=== PATIENT | female | born 2000 ===

== ENCOUNTER → 2022-03-07 16:50 | Outpatient (CLI) | payer OTHER, MEDICAID, SELFPAY | PROVIDERS: Visit Provider Obstetrics & Gynecology | DX: Z34.00 Encounter for supervision of normal first pregnancy, unspecified trimester (principal) | CPT/HCPCS: 87086 ==

== ENCOUNTER → 2022-03-08 10:36 | Outpatient (CLI) | payer OTHER, MEDICAID, SELFPAY ==
[2022-03-08 11:54] LABS: Add Manual Diff / Slide Review NO; Basophils Absolute Auto 100 /uL (0-100); Basophils Percent Auto 0.7 % (0-2); Eosinophils Absolute Auto 0 /uL (0-450); Eosinophils Percent Auto 0.6 % (2-4); Hematocrit 33.1 % (36-46); Hemoglobin 11.6 g/dL (12.0-16.0); Lymphocytes Absolute Auto 1500 /uL (1100-4500); Lymphocytes Percent Auto 17.6 % (25-40); Mean Corpuscular Hemoglobin 32.3 PG (26-34); Mean Corpuscular Volume 92.1 fL (80-100); Monocytes Absolute Auto 600 /uL (0-900); Neutrophils Absolute Auto 6300 /uL (1500-7000); Neutrophils Percent Auto 74.1 % (50-75); Platelet Count 224 X10^3/uL (150-400); White Blood Cell Count 8.4 X10^3/uL (4.5-11.0)
[2022-03-08 14:41] LABS: UR Morphine/Opiate cutoff 300 Negative (Negative); Ur Creatinine Normal (Normal); Ur Specific Gravity Normal (Normal); Urine Amphetamines Negative (Negative); Urine Barbiturates Negative (Negative); Urine Benzodiazepines Negative (Negative); Urine Cocaine Negative (Negative); Urine MDMA Negative (Negative); Urine Methadone Negative (Negative); Urine Methamphetamines Negative (Negative); Urine Oxycodone Negative (Negative); Urine Phencyclidine Negative (Negative); Urine Tetrahydrocannabinol Negative (Negative); Urine Tricyclic Antidepressant Negative (Negative); Urine pH Normal (Normal)
[2022-03-08 16:06] LABS: Urine N gonorrhoeae NOT DETECTED
[2022-03-08 16:33] LABS: Urine Chlamydia NOT DETECTED
[2022-03-09 06:14] LABS: RPR Screen Non Reactive (Non Reactive)
[2022-03-09 08:05] LABS: Varicella IgG Antibody <135 index (Immune >165)
[2022-03-09 22:51] LABS: HIV 1 & 2 Ab/Ag 4th Gen Combo NEGATIVE (NEGATIVE); Hep C Virus Ab w/Reflex Quant NEGATIVE s/c (NEGATIVE); Hepatitis B Surface Antigen NEGATIVE s/c (NEGATIVE)
[2022-03-11 11:42] LABS: AFP, Serum 75.7 ng/mL (.); Inhibin A, Dimeric 159.78 pg/mL (.); Inhibin A, MoM 0.85 (.); Maternal Ethnicity Other (.); Maternal Weight 115 lbs (.); Number of Fetuses No (.); OSBR Risk 1 IN 5411 (.); Results Report (.); Test Results *Screen Negative* (.); hCG, MoM 1.27 (.); hCG, Serum 42715 mIU/mL (.)
== END ==
PROVIDERS: Referring Provider Obstetrics & Gynecology; Visit Provider Obstetrics & Gynecology
DX: O09.30 Supervision of pregnancy with insufficient antenatal care, unspecified trimester (principal); Z3A.18 18 weeks gestation of pregnancy
CPT/HCPCS: 36415; 80055; 80305; 82105; 82677; 84702; 86336; 86787; 86803; 86850; 86900; 86901; 87389; 87491; 87591

== ENCOUNTER → 2022-05-02 13:00 | Outpatient (CLI) | payer OTHER, MEDICAID, SELFPAY ==
--- NOTE | 2022-05-02 13:03 | DI.US.S_ITS ---
PROCEDURE: US OB LIMITED INDICATIONS: SGA OUTSIDE/PRIOR DATING DATA: Last menstrual period (LMP): October 28, 2021 LMP-based estimated date of delivery (ANTELMO): August 04, 2022 First dating scan (date and location): February 10, 2022 at [facility] Estimated date of delivery (ANTELMO) from first dating scan: August 03, 2022 The calculations are made using the clinical ANTELMO of August 04, 2022 TECHNIQUE: Real-time scanning was performed of the fetus, with image documentation and biometric measurements. Biophysical profile was also obtained. Endovaginal scanning: Perform COMPARISON: None available. FINDINGS: General: A single living intrauterine gestation is present. Presentation: Vertex Placenta: Placental position is anterior, without previa. Amniotic fluid index: 18.2 cm, normal range is 5-24 cm. Single deepest vertical pocket is 6.0 cm. heart rate: 144 beats per minute. Maternal cervical canal: Not evaluated biometrics: Biparietal diameter: 26 weeks 3 days Head circumference: 27 weeks 0 days Abdominal circumference: 25 weeks 1 day Femur length: 26 weeks 2 days Clinically estimated gestational age: 26 weeks 4 days Composite gestational age from present scan: 26 weeks 2 days Estimated weight and percentile: 854 grams; 14th percentile Biophysical profile: Tone: 8 points. Movement: 8 points. Respiration: 8 points. Largest pocket of fluid: 8 points. IMPRESSION: 1. Single living intrauterine with ultrasound estimated gestational age of 26 weeks 2 days in the current study and expected age of 26 weeks 4 days based on initial data. 2. Estimated weight 854 grams corresponding to the 14th percentile for gestational age. 3. Normal amniotic fluid index of 18.2 centimeters. 4. Biophysical profile score 8/8. Dictated by: Meggan Bal MD, PhD on 05/02/2022 at 17:10 Approved by: Meggan Bal MD, PhD on 05/02/2022 at 17:15
[2022-05-02 16:17] LABS: Hematocrit 32.9 % (36-46); Hemoglobin 11.3 g/dL (12.0-16.0)
[2022-05-02 17:22] LABS: GTT (PREG) 1 Hour PP 50gm Dose 108 mg/dL (76-139)
[2022-05-03 04:41] LABS: Toxoplasma gohndii IgG <3.0 IU/mL (0.0-7.1); Toxoplasma gondii IgM <3.0 AU/mL (0.0-7.9)
== END ==
PROVIDERS: Referring Provider Obstetrics & Gynecology; Visit Provider Obstetrics & Gynecology
DX: O26.842 Uterine size-date discrepancy, second trimester (principal); O36.5920 Maternal care for other known or suspected poor fetal growth, second trimester, not applicable or unspecified; Z3A.26 26 weeks gestation of pregnancy
CPT/HCPCS: 36415; 76815; 82950; 85014; 85018; 86645; 86777; 86778

== ENCOUNTER 2022-05-02 15:13 | Outpatient (CLI) | payer OTHER, MEDICAID, SELFPAY ==
--- NOTE | 2022-05-03 06:43 | P.TNLD_ITS ---
Visit Information Visit Information Date of evaluation: 05/02/22 Primary OB Provider: Wei Cobb Reason for Evaluation: Yes non-stress test and Yes other Comments/Additional reasons for admission: ANTELMO by LMP 08/04/2022 confirmed by US 02/10 c/w 15+1 EGA = ANTELMO 08/03/2022. Patient noted to have EFW 7th %'tile (316 g) on anatomy scan 03/22 and re-scan 04/29/2022 showed EFW then 4.8th %'tile, AC 3rd %'tile, NL FRANCIS, and borderline Doppler st udies w/ S/D ratios 3.9 (Umbilicus), 5.3 (Mid-cord), 3.5 (Placental insertion). Patient presents for NST, repeat EFW, BPP, and Doppler studies. CMV and Toxo studies today are negative. Vital Signs Vital Signs: 109/66, P=96, 36.3C PFSH Medical History Anxiety UTI (urinary tract infection) Surgical History No history of previous surgery Family History Father Sarcoidosis Sister Tourette disorder Social History marital status: unmarried,living together number of children: 0 household members: significant other and other (Boyfriends grandfather) lives independently: Yes housing: house pets and animals: Yes (Dog, Cat - aware of toxoplasmosis) education level: high school occupational status: unemployed current occupational exposures/hazards: No special robert needs: No seatbelt use: sometimes water heater temp set < 120 deg: Yes (will check) working smoke detector in home: Yes fire extinguisher in home: Yes carbon monox detector in home: Yes firearms in home: No do you feel safe at home: Yes Smoking Status: Former smoker second hand exposure: Yes (little) alcohol intake: former (only on bd) substance use type: does not use during the past year weight has: remained stable well-balanced diet: about half the time daily servings fruits/ve-1 caffeine: Yes (limit 200mg a day) Exam Const General: cooperative Nutritional Appearance: thin Orientation: alert HENNE Head: normal to inspection, normocephalic and atraumatic Eyes General: appearance normal, both eyes and all related structures Neck Neck: normal visual inspection Resp Effort & Inspection: normal respiratory effort and able to speak in complete sentences Cardio Rate: regular rate Rhythm: regular rhythm Heart Sounds: S1 normal, S2 normal and no murmurs GI Inspection: normal to inspection Palpation: soft and no hepatosplenomegaly Uterus Location (Fundal Height): 24 Extrem Right lower extremity: normal to inspection Objective Imaging OB U/S, BPP: Radiologist's impression: FINDINGS:? ? General:? A single living intrauterine gestation is present.? Presentation:? Vertex Placenta:? Placental position is anterior, without previa.? ? Amniotic fluid index:? 18.2 cm, normal range is 5-24 cm.? Single deepest vertical pocket is 6.0 cm. heart rate:? 144 beats per minute.? Maternal cervical canal:? Not evaluated ? biometrics:? Biparietal diameter:? 26 weeks 3 days Head circumference:? 27 weeks 0 days Abdominal circumference:? 25 weeks 1 day Femur length:? 26 weeks 2 days Clinically estimated gestational age:? 26 weeks 4 days Composite gestational age from present scan:? 26 weeks 2 days Estimated weight and percentile:? 854 grams; 14th percentile? ? Biophysical profile:? Tone:? 8 points. Movement:? 8 points.? Respiration:? 8 points.? Largest pocket of fluid:? 8 points.?? ? IMPRESSION:? ? 1. Single living intrauterine with ultrasound estimated gestational age of 26 weeks 2 days in the current study and expected age of 26 weeks 4 days based on initial data.? ? 2. Estimated weight 854 grams corresponding to the 14th percentile for gestational age. ? 3. Normal amniotic fluid index of 18.2 centimeters.? ? 4. Biophysical profile score 8/8.? Diagnosis, Plan/Disposition Final Diagnosis (1) Size of fetus inconsistent with dates in second trimester: Status: Acute (2) : Status: Acute Plan/Disposition Plan: Unfortunately Doppler studies not repeated as ordered but all other aspects of the assessment are reassuring. EFW suggests SGA (probably constitutional; patient is petite and has gained little weight in her thus far). Increased caloric intake recommended; she and FOB are not resource-poor but rather she has been saving $ by consuming less food. Patient will return for NST and Doppler studies 05/05/2022 OB Disposition: home
== END 2022-05-02 17:15 | disposition home or self-care (01) ==
LOC: OB 05-03 13:16
PROVIDERS: Referring Provider Obstetrics & Gynecology; Visit Provider Obstetrics & Gynecology
DX: O26.843 Uterine size-date discrepancy, third trimester (principal); Z3A.26 26 weeks gestation of pregnancy; O36.5920 Maternal care for other known or suspected poor fetal growth, second trimester, not applicable or unspecified
CPT/HCPCS: 36415; 59025; 59050; 76815; 76817; 76819; 82950; 85014; 85018; 86645; 86777; 86778; G0378; G0379

== ENCOUNTER 2022-05-05 07:57 | Outpatient (CLI) | payer OTHER, MEDICAID, SELFPAY ==
--- NOTE | 2022-05-05 | DI.US.S_ITS ---
PROCEDURE: US OB BIOPHYSICAL PROFILE INDICATIONS: IUGR OUTSIDE/PRIOR DATING DATA: First dating scan (date and location): 01/09/2022 [facility]. TECHNIQUE: Real-time scanning was performed of the fetus, with image documentation. Biophysical profile was also obtained. COMPARISON: OB ultrasound 05/02/2022. FINDINGS: General: A single living intrauterine gestation is present. Presentation: Vertex. Placenta: Placental position is anterior, without previa. Amniotic fluid index: 15.2 cm, normal range is 5-24 cm. Single deepest vertical pocket is 4.4 cm. heart rate: 157 beats per minute. Maternal cervical canal: Not well seen. Composite gestational age from initial ultrasound: 27 weeks 0 days Biophysical profile: Tone: 2 points. Movement: 2 points. Respiration: 2 points. Largest pocket of fluid: 2 points. Umbilical artery Doppler: 5.0, 3.88, 3.33. Preserved diastolic flow. IMPRESSION: 1. Denson living intrauterine at 27 weeks 0 days based on prior dating. 2. Normal placenta and amniotic fluid. 3. Normal biophysical profile. Score 8/8. 4. The umbilical artery systolic to diastolic ratio at the cord insertion is 5.0. This is mildly elevated. Umbilical artery ratio elsewhere is within normal limits. The umbilical artery waveform is within normal limits. Consider short-term follow-up umbilical artery Doppler. Preliminary results were conveyed to Dr. Cobb by the tube filler. We strive to produce accurate, complete, and clear reports of imaging services. To assist us in improving patient care, this report was composed using standard report templates and voice recognition software. Therefore, it may contain abnormal punctuation, insertions and/or omissions. Occasional wrong-word or sound-alike substitutions may occur. Though we review the report and make efforts to correct it, we do recommend that the report be read carefully in proper context to recognize any text inaccuracies. Dictated by: Huseyin Moreland M.D. on 05/05/2022 at 9:55 Approved by: Huseyin Moreland M.D. on 05/05/2022 at 10:03
--- NOTE | 2022-05-05 08:12 | PM.OBTRLD ---
Visit Information Visit Information Date of evaluation: 05/05/22 Primary OB Provider: Wei Cobb Reason for Evaluation: Yes non-stress test Comments/Additional reasons for admission: Previous US at [facility] EFW 4.8th %'tile, borderline/mildly elevated dopplers [facility] Medical History Anxiety UTI (urinary tract infection) Surgical History No history of previous surgery Family History Father Sarcoidosis Sister Tourette disorder Social History marital status: unmarried,living together number of children: 0 household members: significant other and other (Boyfriends grandfather) lives independently: Yes housing: house pets and animals: Yes (Dog, Cat - aware of toxoplasmosis) education level: high school occupational status: unemployed current occupational exposures/hazards: No special robert needs: No seatbelt use: sometimes water heater temp set < 120 deg: Yes (will check) working smoke detector in home: Yes fire extinguisher in home: Yes carbon monox detector in home: Yes firearms in home: No do you feel safe at home: Yes Smoking Status: Former smoker second hand exposure: Yes (little) alcohol intake: former (only on ) substance use type: does not use during the past year weight has: remained stable well-balanced diet: about half the time daily servings fruits/ve-1 caffeine: Yes (limit 200mg a day) Objective Imaging OB US: Radiologist's impression: PROCEDURE:? US OB BIOPHYSICAL PROFILE ? INDICATIONS:? IUGR ? OUTSIDE/PRIOR DATING DATA:? First dating scan (date and location):? 01/09/2022 [facility].? ? TECHNIQUE:? Real-time scanning was performed of the fetus, with image documentation.? Biophysical profile was also obtained.? ? COMPARISON:? OB ultrasound 05/02/2022. ? FINDINGS:? ? General:? A single living intrauterine gestation is present.? Presentation:? Vertex.? Placenta:? Placental position is anterior, without previa.? ? Amniotic fluid index:? 15.2 cm, normal range is 5-24 cm.? Single deepest vertical pocket is 4.4 cm. heart rate:? 157 beats per minute.? Maternal cervical canal:? Not well seen. ? Composite gestational age from initial ultrasound:? 27 weeks 0 days ? Biophysical profile:? Tone:? 2 points. Movement:? 2 points.? Respiration:? 2 points.? Largest pocket of fluid:? 2 points.? ? Umbilical artery Doppler:? 5.0, 3.88, 3.33.? Preserved diastolic flow. ? ? IMPRESSION:? 1. Denson living intrauterine at 27 weeks 0 days based on prior dating. ? 2. Normal placenta and amniotic fluid. ? 3. Normal biophysical profile.? Score 8/8. ? 4. The umbilical artery systolic to diastolic ratio at the cord insertion is 5.0.? This is mildly elevated.? Umbilical artery ratio elsewhere is within normal limits.? The umbilical artery waveform is within normal limits.? Consider short-term follow-up umbilical artery Doppler. Evaluation Evaluation Baseline heart rate: 135 Variability: Average (6-10) monitor accelerations: Present Monitor Decelerations: Absent Category of Tracing: Reactive Diagnosis, Plan/Disposition Final Diagnosis (1) Size of fetus inconsistent with dates in second trimester: Status: Acute (2) : Status: Acute Plan/Disposition Plan: Doppler studies are again borderline elevated with reassuring assessment by NST and BPP. There is an EFW discrepancy between US's performed at [facility] (<5th %'tile) and [facility] (14th %'tile). Will refer to [facility] on an expedited basis to evaluate both EFW and Doppler studies with IUGR strongly suspected based on prior biometry and borderline doppler studies. OB Disposition: home
== END 2022-05-05 08:30 | disposition home or self-care (01) ==
LOC: LABOR 08:29 → OB 05-08 09:47
PROVIDERS: Referring Provider Obstetrics & Gynecology; Visit Provider Obstetrics & Gynecology
DX: O26.842 Uterine size-date discrepancy, second trimester (principal); Z3A.27 27 weeks gestation of pregnancy
CPT/HCPCS: 59025; 76819; G0378; G0379